=== PATIENT | female | born 1965 | race Caucasian/White ===

== ENCOUNTER 2019-07-25 22:59 | Emergency (ER) | payer BC, MEDICAID ==
[2019-07-25] MEDS ORDERED: Sodium Chloride 0.9% 10 ML Syringe FLUSH PRN (23:34)
[2019-07-25] MEDS ORDERED: fentaNYL 100 MCG/2 ML SDV IVPUSH ONE (23:35)
[2019-07-25] MEDS ORDERED: Pantoprazole 40 MG Vial IVPUSH ONE (23:35)
--- NOTE | 2019-07-25 23:41 | EDM.PDOC ---
ED HPI GENERAL MEDICAL PROBLEM - General Chief Complaint: Abdominal Pain Stated Complaint: STOMACH PAIN Time Seen by Provider: 07/25/19 23:20 Source of Information: Reports: Patient, Old Records History Limitations: Reports: No Limitations - History of Present Illness INITIAL COMMENTS - FREE TEXT/NARRATIVE: Alaina comes into [facility] ED with a 4 day hx of epigastric pains, radiating to the R and L costal margins, but not to the back. Sxs began after a birthday meal that included 1 alcoholic beverage. The pain is sharp, intermittent, without nausea or vomiting, diarrhea or voiding sxs.Her BMs have been formed and normal in color. She took some Ibuprofen for pain relief before bedtime, but awoke with escalating sxs of pain. She has tried no other meds. Of interest is a PMH of gastritis 2015 ED visit. Upper Mid-Anterior Abdomen Pain Score (Numeric/FACES): 8 - Related Data Allergies Allergy/AdvReac Type Severity Reaction Status Date / Time No Known Allergies Allergy Verified 07/01/14 17:59 Home Meds: Home Meds Propranolol [Inderal] 20 mg PO DAILY 07/25/19 [History] Venlafaxine HCl [Venlafaxine ER] 75 mg PO DAILY 07/25/19 [History] traZODone 100 mg PO DAILY 07/25/19 [History] Past Medical History Cardiovascular History: Reports: Hypertension Psychiatric History: Reports: Anxiety Social & Family History - Tobacco Use Smoking Status *Q: Light Tobacco Smoker Years of Tobacco use: 15 Packs/Tins Daily: 0 ED ROS GENERAL - Review of Systems Review Of Systems: See Below Constitutional: Reports: Decreased Appetite HEENT: Reports: No Symptoms Respiratory: Reports: No Symptoms Cardiovascular: Reports: No Symptoms Endocrine: Reports: No Symptoms GI/Abdominal: Reports: Abdominal Pain, Decreased Appetite : Reports: No Symptoms Musculoskeletal: Reports: No Symptoms Skin: Reports: No Symptoms Neurological: Reports: No Symptoms Psychiatric: Reports: No Symptoms Hematologic/Lymphatic: Reports: No Symptoms Immunologic: Reports: No Symptoms ED EXAM, GI/ABD - Physical Exam Exam: See Below Exam Limited By: No Limitations General Appearance: Alert, WD/WN, Anxious, Moderate Distress, Obese Eyes: Bilateral: Normal Appearance, EOMI Ears: Normal External Exam Nose: Normal Inspection Throat/Mouth: Normal Inspection, Normal Lips, Normal Teeth, Normal Gums, Normal Oropharynx, Normal Voice, No Airway Compromise Head: Normocephalic Neck: Normal Inspection, Supple, Non-Tender Respiratory/Chest: Lungs Clear, Normal Breath Sounds, Chest Non-Tender Cardiovascular: Normal Peripheral Pulses, Regular Rate, Rhythm, No Edema, No Murmur GI/Abdominal Exam: Normal Bowel Sounds, Soft, No Organomegaly, No Distention, No Mass, Tender (epigastrium without rebound, guarding or rigidity) (Female) Exam: Deferred Rectal (Female) Exam: Deferred Back Exam: Normal Inspection Extremities: Normal Inspection Neurological: Alert, Oriented, CN II-XII Intact, Normal Gait, No Motor/Sensory Deficits Psychiatric: Anxious Skin Exam: Warm, Dry, Intact, Normal Color, No Rash Lymphatic: No Adenopathy Course - Vital Signs Text/Narrative:: Following assessment, I started an IV in the RUE and administered NS 1 L over the next hour, Protonix 40 mg IV, and Fentanyl 100 mcg IV for comfort. Subsequent screening labs noted baseline values for CBC; CMP noted nonFBS 154 mg %, ALT 45 U; UA noted ket small; amylase normal, lipase normal. The abd-pelvic CT w contrast noted no specific abnormality by verbal report. A gastritis is suspected. Last Recorded V/S: Last Vital Signs Temp 37.5 C 07/25/19 23:05 Pulse 88 07/25/19 23:05 Resp 20 07/25/19 23:05 BP 179/95 H 07/25/19 23:05 Pulse Ox 97 07/25/19 23:05 - Orders/Labs/Meds Orders: Active Orders 24 hr Category Date Time Status Abdomen Pelvis w Cont [CT] Stat Exams 07/26/19 03:11 Ordered Sodium Chloride 0.9% [Normal Saline] 1,000 ml Med 07/25/19 23:45 Active IV ASDIRECTED Sodium Chloride 0.9% [Saline Flush] Med 07/25/19 23:34 Active 10 ml FLUSH ASDIRECTED PRN Peripheral IV Insertion Adult [OM.PC] Routine Oth 07/25/19 23:34 Ordered Medication Orders Sodium Chloride (Normal Saline) 1,000 mls @ 999 mls/hr IV ASDIRECTED ILA Last Admin: 07/26/19 00:02 Dose: 999 mls/hr Sodium Chloride (Saline Flush) 10 ml FLUSH ASDIRECTED PRN PRN Reason: Keep Vein Open Last Admin: 07/26/19 00:03 Dose: 10 ml Labs: Laboratory Tests 07/25/19 07/25/19 07/25/19 Range/Units 23:10 23:10 23:10 WBC 10.2 (4.5-12.0) X10-3/uL RBC 4.59 (3.23-5.20) x10(6)uL Hgb 14.7 (11.5-15.5) g/dL Hct 42.7 (30.0-51.3) % MCV 93.2 (80-96) fL MCH 32.0 (27.7-33.6) pg MCHC 34.3 (32.2-35.4) g/dL RDW 11.4 L (11.5-15.5) % Plt Count 236 (125-369) X10(3)uL MPV 8.7 (7.4-10.4) fL Neut % (Auto) 61.5 (46-82) % Lymph % (Auto) 22.9 (13-37) % Armstrong % (Auto) 13.8 H (4-12) % Eos % (Auto) 1 (1.0-5.0) % Baso % (Auto) 1 (0-2) % Neut # (Auto) 6.3 (1.6-8.3) # Lymph # (Auto) 2.3 (0.6-5.0) # Armstrong # (Auto) 1.4 H (0.0-1.3) # Eos # (Auto) 0.1 (0.0-0.8) # Baso # (Auto) 0.1 (0.0-0.2) # Sodium 141 (135-145) mmol/L Potassium 4.0 (3.5-5.3) mmol/L Chloride 105 (100-110) mmol/L Carbon Dioxide 26 (21-32) mmol/L BUN 16 (7-18) mg/dL Creatinine 1.0 (0.55-1.02) mg/dL Est Cr Clr Drug Dosing 66.43 mL/min Estimated GFR (MDRD) 58 L (>60) BUN/Creatinine Ratio 16.0 (9-20) Glucose 154 H (80-116) mg/dL Calcium 8.8 (8.6-10.2) mg/dL Total Bilirubin 0.6 (0.1-1.3) mg/dL AST 19 (5-25) IU/L ALT 45 H (12-36) U/L Alkaline Phosphatase 94 (56-112) IU/L Total Protein 7.7 (6.0-8.0) g/dL Albumin 3.5 (3.5-5.2) g/dL Globulin 4.2 g/dL Albumin/Globulin Ratio 0.8 Amylase (25-115) U/L Lipase 181 (73-393) U/L Urine Color (YELLOW) Urine Appearance (CLEAR) Urine pH (5.0-6.5) Ur Specific [place] (1.010-1.025) Urine Protein (NEGATIVE) mg/dL Urine Glucose (UA) (NORMAL) mg/dL Urine Ketones (NEGATIVE) mg/dL Urine Occult Blood (NEGATIVE) Urine Nitrite (NEGATIVE) Urine Bilirubin (NEGATIVE) Urine Urobilinogen (NEGATIVE) mg/dL Ur Leukocyte Esterase (NEGATIVE) Urine RBC (0-5) Urine WBC (0-5) Ur Squamous Epith Cells (NS,R,O) Urine Bacteria (NS) Urine Mucus (NS) 07/25/19 07/26/19 Range/Units 23:21 01:12 WBC (4.5-12.0) X10-3/uL RBC (3.23-5.20) x10(6)uL Hgb (11.5-15.5) g/dL Hct (30.0-51.3) % MCV (80-96) fL MCH (27.7-33.6) pg MCHC (32.2-35.4) g/dL RDW (11.5-15.5) % Plt Count (125-369) X10(3)uL MPV (7.4-10.4) fL Neut % (Auto) (46-82) % Lymph % (Auto) (13-37) % Armstrong % (Auto) (4-12) % Eos % (Auto) (1.0-5.0) % Baso % (Auto) (0-2) % Neut # (Auto) (1.6-8.3) # Lymph # (Auto) (0.6-5.0) # Armstrong # (Auto) (0.0-1.3) # Eos # (Auto) (0.0-0.8) # Baso # (Auto) (0.0-0.2) # Sodium (135-145) mmol/L Potassium (3.5-5.3) mmol/L Chloride (100-110) mmol/L Carbon Dioxide (21-32) mmol/L BUN (7-18) mg/dL Creatinine (0.55-1.02) mg/dL Est Cr Clr Drug Dosing mL/min Estimated GFR (MDRD) (>60) BUN/Creatinine Ratio (9-20) Glucose (80-116) mg/dL Calcium (8.6-10.2) mg/dL Total Bilirubin (0.1-1.3) mg/dL AST (5-25) IU/L ALT (12-36) U/L Alkaline Phosphatase (56-112) IU/L Total Protein (6.0-8.0) g/dL Albumin (3.5-5.2) g/dL Globulin g/dL Albumin/Globulin Ratio Amylase 53 (25-115) U/L Lipase (73-393) U/L Urine Color Yellow (YELLOW) Urine Appearance Slightly cloudy (CLEAR) Urine pH 5.0 (5.0-6.5) Ur Specific [place] 1.020 (1.010-1.025) Urine Protein Negative (NEGATIVE) mg/dL Urine Glucose (UA) Normal (NORMAL) mg/dL Urine Ketones 15 H (NEGATIVE) mg/dL Urine Occult Blood Moderate H (NEGATIVE) Urine Nitrite Negative (NEGATIVE) Urine Bilirubin Negative (NEGATIVE) Urine Urobilinogen Normal (NEGATIVE) mg/dL Ur Leukocyte Esterase Small H (NEGATIVE) Urine RBC 5-10 H (0-5) Urine WBC 0-5 (0-5) Ur Squamous Epith Cells Few H (NS,R,O) Urine Bacteria Few H (NS) Urine Mucus Few H (NS) Meds: Medications Generic Name Dose Route Start Last Admin Trade Name Freq PRN Reason Stop Dose Admin Sodium Chloride 1,000 mls @ 999 mls/hr 07/25/19 23:45 07/26/19 00:02 Normal Saline IV 999 mls/hr ASDIRECTED ILA Administration Sodium Chloride 10 ml 07/25/19 23:34 07/26/19 00:03 Saline Flush FLUSH 10 ml ASDIRECTED PRN Administration Keep Vein Open Discontinued Medications Generic Name Dose Route Start Last Admin Trade Name Maurisio PRN Reason Stop Dose Admin Diatrizoate Meglum/Diatrizoate Sod 30 ml 07/26/19 03:59 07/26/19 04:15 Gastrografin 37% PO 07/26/19 04:00 30 ml . DIRECTED ONE Administration Fentanyl 100 mcg 07/25/19 23:35 07/25/19 23:51 Sublimaze IVPUSH 07/25/19 23:36 100 mcg ONETIME ONE Administration Iopamidol 100 ml 07/26/19 03:52 07/26/19 04:15 Isovue-370 (76%) IV 07/26/19 03:53 100 ml . DIRECTED ONE Administration Pantoprazole Sodium 40 mg 07/25/19 23:35 07/25/19 23:51 Protonix Iv IVPUSH 07/25/19 23:36 40 mg ONETIME ONE Administration Departure - Departure Time of Disposition: 05:17 Disposition: Home, Self-Care 01 Condition: Fair Clinical Impression: Gastritis - Discharge Information *PRESCRIPTION DRUG MONITORING PROGRAM REVIEWED*: Not Applicable *COPY OF PRESCRIPTION DRUG MONITORING REPORT IN PATIENT STEVEN: Not Applicable Instructions: Gastritis, Adult, [id number], Pantoprazole injection, Fentanyl injection Referrals: Nita Gamez NP [Primary Care Provider] - Forms: ED Department Discharge Additional Instructions: Activity as tolerated. Avoid alcohol and smoking. Prilosec OTC twice a day. Avoid NSAID medications such as Ibuprofen, Aleve or Aspirin. May take Tylenol as needed for pain. Follow up with primary physician at clinic should symptoms persist. Sepsis Event Note - Evaluation Sepsis Screening Result: No Definite Risk - Focused Exam Vital Signs: Vital Signs Temp Pulse Resp BP Pulse Ox 07/25/19 23:05 37.5 C 88 20 179/95 H 97 Date Exam was Performed: 07/26/19 Time Exam was Performed: 05:20 - Problem List & Annotations (1) Gastritis SNOMED Code(s): 9559722 Code(s): K29.70 - GASTRITIS, UNSPECIFIED, WITHOUT BLEEDING Status: Acute Current Visit: Yes Annotation/Comment:: I suggested Prilosec 20 mg bid, bland diet, and follow up with PCP if sxs persist. Qualifiers: Gastritis type: unspecified gastritis Chronicity: unspecified Gastritis bleeding: without bleeding Qualified Code(s): K29.70 - Gastritis, unspecified , without bleeding - Problem List Review Problem List Initiated/Reviewed/Updated: Yes - My Orders Last 24 Hours: My Active Orders 07/25/19 23:34 Sodium Chloride 0.9% [Saline Flush] 10 ml FLUSH ASDIRECTED PRN Peripheral IV Insertion Adult [OM.PC] Routine 07/25/19 23:45 Sodium Chloride 0.9% [Normal Saline] 1,000 ml IV ASDIRECTED 07/26/19 03:11 Abdomen Pelvis w Cont [CT] Stat - Assessment/Plan Last 24 Hours: My Active Orders 07/25/19 23:34 Sodium Chloride 0.9% [Saline Flush] 10 ml FLUSH ASDIRECTED PRN Peripheral IV Insertion Adult [OM.PC] Routine 07/25/19 23:45 Sodium Chloride 0.9% [Normal Saline] 1,000 ml IV ASDIRECTED 07/26/19 03:11 Abdomen Pelvis w Cont [CT] Stat Plan: Follow up with PCP if sxs persist.
[2019-07-25] MEDS ORDERED: Sodium Chloride 0.9% 1,000 ML IV SCH (23:45)
[2019-07-26] MEDS ORDERED: Iopamidol 755 Mg/ML 100 ML Bottle IV ONE (03:52)
[2019-07-26] MEDS ORDERED: Diatrizoate Meglumine/Diatrizoate Sodium 37% 30 ML Bottle PO ONE (03:59)
[2019-07-26 05:33] VITALS: BP 158/68; PULSE 76
== END 2019-07-26 05:25 | disposition home or self-care (01) ==
LOC: FB.ED 22:59
DX: K29.70 Gastritis, unspecified, without bleeding (principal)
CPT/HCPCS: 36415; 74177; 80053; 81001; 82150; 83690; 85025; 96374; 96375; 99284; C9113; J3010; J7030; Q9963; Q9967